=== PATIENT | female | born 1965 | race Caucasian/White ===

== ENCOUNTER → 2019-11-25 | Day surgery (SDC) | payer OTHER ==
[~2019-11-25] MED LIST: AMBREN PO; BENTYL10 MG/1 ML PO; FENTANYL CITRATE/PF 100MCG/2 ML INJ ONE; GLUCAGON FOR INJ 1 MG VIAL ONE; HYOSCYAMINE 0.125 MG TAB ONE; LIDOCAINE HCL 2% LOCAL INJ 5 ML SDV VIAL INJ ONE; MIDAZOLAM HCL 2 MG/2 ML VIAL ONE; PROBIOTIC & AC1 EACH PO
[2019-11-25 11:20] VITALS: BP 132/77
--- NOTE | 2019-11-25 16:59 | Operative Report ---
DATE OF PROCEDURE: 11/25/2019 SURGEON: Robb Matamoros MD PROCEDURES: Colonoscopy with polypectomy note. INDICATIONS FOR COLONOSCOPY: Colorectal cancer screening, right lower quadrant pain. MEDICATIONS: The patient was done under MAC, please see anesthesiologist's note. PROCEDURE IN DETAIL: With the patient in left lateral decubitus position, a flexible fiberoptic Olympus colonoscope was inserted into the rectum and advanced all the way to the cecum. An approximately 5 mm sessile polyp was noted in the cecum and that was removed per cold snare polypectomy. The ileocecal valve was intubated and the scope was advanced into the terminal ileum. Biopsies were obtained. The scope was then withdrawn back into the colon. It was then withdrawn slowly and two minute polyps were removed per cold biopsy forceps on the ascending colon. Two polyps were hot snared from the transverse colon. The descending appeared to be within normal limits. Diverticular disease was noted to involve the sigmoid colon. One polyp was hot snared from the sigmoid colon. The rectum appeared to be within normal limits. The scope was then retroflexed into the distal rectum, small internal hemorrhoids were noted, none of which was actively bleeding. The scope was then straightened out, it was subsequently withdrawn. The patient tolerated the procedure well. IMPRESSION: 1. Cecal polyp, cold snared. 2. Ascending colon polyps x2, cold biopsied. 3. Transverse colon polyps x2, hot snared. 4. Diverticulosis. 5. Sigmoid colon polyp, hot snared. 6. Internal hemorrhoids, none actively bleeding. PLAN: 1. Follow up histology. 2. Initiate VSL #3 one p.o. b.i.d. Bentyl 10 mg one p.o. t.i.d. 3. The patient might benefit from a followup colonoscopy in 3 years. Robb Matmaoros MD [facility] [place]/[facility] /[id number] cc: DR. LYLE GONZALES
== END | disposition home or self-care (01) ==
LOC: OR 07:37
PROVIDERS: ATTEND Internal Medicine Gastroenterology
DX: K58.9 Irritable bowel syndrome, unspecified (principal); D12.2 Benign neoplasm of ascending colon; D12.3 Benign neoplasm of transverse colon; K57.30 Diverticulosis of large intestine without perforation or abscess without bleeding; K64.8 Other hemorrhoids; K21.9 Gastro-esophageal reflux disease without esophagitis; E66.2 Morbid (severe) obesity with alveolar hypoventilation; Z88.1 Allergy status to other antibiotic agents; Z88.0 Allergy status to penicillin; Z88.2 Allergy status to sulfonamides; Z01.810 Encounter for preprocedural cardiovascular examination; Z01.812 Encounter for preprocedural laboratory examination; Z11.59 Encounter for screening for other viral diseases; Z68.38 Body mass index [BMI] 38.0-38.9, adult
CPT/HCPCS: 45380; 45385; 87635; 93005; J1610; J2001; J2250; J3010